=== PATIENT | male | born 1970 | race Two or more races ===

== ENCOUNTER 2024-12-01 19:14 | Emergency (ER) | payer MEDICARE, OTHER ==
[~2024-12-01] VITALS: Ht 177.8 cm; Wt 136.1 kg
[2024-12-01 20:37] LABS: PLATELET COUNT (AUTO) 326 K/uL (152-348); RED BLOOD CELL COUNT(AUTO) 4.29 MIL/uL (4.06-5.63); RED CELL DISTRIBUTION WIDTH 16.3 % (12.1-16.2); WHITE BLOOD COUNT (AUTO) 10.6 K/uL (3.6-10.2)
[2024-12-01] MEDS: LORAZEPAM 2 MG/1 ML VIAL IV ONE (20:40)
[2024-12-01 20:47] LABS: CREATININE 1.0 mg/dL (0.6-1.3); SODIUM SERUM 141.0 mmol/L (136-145); UREA NITROGEN, BLOOD 18.0 mg/dL (7-18)
[2024-12-01 20:59] LABS: ASPARTATE AMINOTRANSFERASE 71.0 U/L (15-37); TOTAL PROTEIN, SERUM 8.2 g/dL (6.4-8.2)
[2024-12-01 21:53] VITALS: BP 146/80; O2SAT 97
== END 2024-12-01 23:29 ==
LOC: ER 19:14
DX: F41.9 Anxiety disorder, unspecified (principal); R00.0 Tachycardia, unspecified; R06.02 Shortness of breath; I10 Essential (primary) hypertension; F17.200 Nicotine dependence, unspecified, uncomplicated; N40.0 Benign prostatic hyperplasia without lower urinary tract symptoms; K21.9 Gastro-esophageal reflux disease without esophagitis; F32.A Depression, unspecified; F20.9 Schizophrenia, unspecified
CPT/HCPCS: 99285; 96374; 71045; 80053; 83880; 83735; 84443; 85025; 84484; 36415; 93005; J2060; A4606; A4663